=== PATIENT | female | born 1990 | race Caucasian/White ===

== ENCOUNTER 2017-08-14 19:21 | Emergency (ER) | payer BC ==
[~2017-08-14] VITALS: Ht 162.6 cm; Wt 68.0 kg
[~2017-08-14 19:21] MED LIST: DEPO150I IM; PROM25TA10 PO; VALT500T PO; VENL75TA PO; birth control PO
[2017-08-14 19:23] VITALS: BP 138/94; PULSE 89; RESP 16; TEMP 98.5; O2SAT 99
[2017-08-14 19:38] VITALS: BP 147/94; PULSE 83; RESP 18; O2SAT 99
[2017-08-14] MEDS ORDERED: ACETAMINOPHEN 325 MG TAB PO ONE (19:45)
--- NOTE | 2017-08-14 19:45 | PD ---
HPI Chief Complaint: Abnormal Results Time Seen by Provider: 19:32 Travel History International Travel<30 days: No Contact w/Intl Traveler<30days: No Traveled to known affect area: No History of Present Illness HPI Examined in the presence of female nurse. This is 27-year-old female who is transferred here from [facility] for ultrasound of the right lower extremity. The patient reports that she woke up yesterday morning with pain to the posterior proximal right calf and knee. She describes it as a "charley horse" type pain that is constant, worse when walking. She does not recall any injuries but she does note that 2 days ago she had a lot of alcohol to drink and so she may have fallen but doesn't remember specifically. She denies any history of DVT personally. Denies any recent travel. She does report exploratory laparoscopic surgery in June 2017 for endometriosis treatment. She denies chest pain, shortness of breath, thigh pain, back pain. She tried taking ibuprofen with persistent pain. PFSH Past Medical History Depression: Yes Diminished Hearing: No Immunizations Current: Yes Tetanus Vaccination: Unknown Influenza Vaccination: No ?: Not LMP: 07/22/17 Ovarian Cysts: Yes Past Surgical History Abdominal Surgery: Yes (EXP FOR ENDOMETRIOSIS) Other Surgery: Yes ([place] teeth) Social History Alcohol Use: Yes (socially) Tobacco Use: Yes (1/2 ppd) Substance Use: No Allergies-Medications (Allergen,Severity, Reaction): Coded Allergies: No Known Allergies (Unverified Adverse Reaction, Unknown, 08/14/17) Reported Meds & Prescriptions Reported Meds & Active Scripts Active Ibuprofen 800 Mg Tab 800 Mg PO Q6HR PRN Baclofen 10 Mg Tab 10 Mg PO Q8HR 5 Days Reported Depo-Provera Inj (Medroxyprogesterone Inj) 150 Mg/Ml Inj 150 Mg IM Q90D Effexor (Venlafaxine HCl) 75 Mg Tab 75 Mg PO DAILY [ control] 1 Tab 1 Tab PO HS Review of Systems Except as stated in HPI: all other systems reviewed are Neg Physical Exam Narrative GENERAL: Well-developed well-nourished female in no acute distress SKIN: Warm and dry. HEAD: Atraumatic. Normocephalic. EYES: Pupils equal and round. No scleral icterus. No injection or drainage. ENT: No nasal bleeding or discharge. Mucous membranes pink and moist. NECK: Trachea midline. No JVD. CARDIOVASCULAR: Regular rate and rhythm. No murmur appreciated. RESPIRATORY: No accessory muscle use. Clear to auscultation. Breath sounds equal bilaterally. GASTROINTESTINAL: Abdomen soft, non-tender, nondistended. Hepatic and splenic margins not palpable. MUSCULOSKELETAL: No obvious deformities. There is no lower extremity edema. There is tenderness to palpation of the posterior right calf muscle. Positive Homans on the right leg. Achilles tendon is intact. The patient maintains full active range of motion of the lower extremities. 2+ dorsalis pedis and posterior tibial pulses. NEUROLOGICAL: Awake and alert. No obvious cranial nerve deficits. Motor grossly within normal limits. Normal speech. PSYCHIATRIC: Appropriate mood and affect; insight and judgment normal. Data Data Last Documented VS Vital Signs Date Time Temp Pulse Resp B/P (MAP) Pulse Ox O2 Delivery O2 Flow Rate FiO2 08/14/17 19:38 83 18 147/94 (111) 99 Room Air 08/14/17 19:23 98.5 Orders Orders Us Leg Venous Doppler (08/14/17 19:33) Acetaminophen (Tylenol) (08/14/17 19:45) Ketorolac Inj (Toradol Inj) (08/14/17 20:30) Ed Discharge Order (08/14/17 20:23) [facility] Medical Decision Making Medical Screen Exam Complete: Yes Emergency Medical Condition: Yes Medical Record Reviewed: Yes Differential Diagnosis Muscle cramp, muscle strain, DVT Narrative Course 27-year-old female has been expressing right calf pain since yesterday. Transferred here from [facility] for ultrasound of the right leg. I reviewed her records from her visit this afternoon at [facility]. CBC was unremarkable, CMP revealed a total protein of 6.3, calcium 8.1. Beta hCG was negative. Tibia-fibula x-ray was normal. D-dimer was 0.5. I offered the patient muscle relaxant medication however she declines as she will likely have to drive herself home tonight. The patient's right leg ultrasound is negative for DVT. Suspect muscular pain. The patient be given a dose of Toradol here and discharged with a short course of ibuprofen and baclofen. Diagnosis Primary Impression: Right calf pain Additional Instructions: Cool compresses several times a day 10 minutes at a time. Medication as needed. Take ibuprofen with meals. Do not drive or drink alcohol and taking baclofen. Follow up with primary care physician as needed and return for any emergent medical conditions. Med/Other Pt SpecificInfo: Prescription(s) given Scripts Ibuprofen (Ibuprofen) 800 Mg Tab 800 MG PO Q6HR Y for PAIN, #40 TAB 0 Refills Prov: Vicki Funez MD 08/14/17 Baclofen (Baclofen) 10 Mg Tab 10 MG PO Q8HR for 5 Days, TAB 0 Refills Prov: Vicki Funez MD 08/14/17 Disposition: 01 DISCHARGE HOME Condition: Stable Dutch Oneal Aug 14, 2017 19:45
--- NOTE | 2017-08-14 20:22 | RADRPT ---
EXAM DATE/TIME: 08/14/2017 19:58 [place] COMPARISON: No previous studies available for comparison. INDICATIONS : Right leg pain. MEDICAL HISTORY : Endometriosis. Ovarian cysts. Depression. SURGICAL HISTORY : Exploratory surgery for endometriosis. [place] teeth. ENCOUNTER: Initial ACUITY: 2 day PAIN SCORE: 8/10 LOCATION: Right leg. TECHNIQUE: Venous ultrasound of the leg was performed from the inguinal ligament to the proximal calf. Real-karen e, color Doppler and spectral tracing, compression and augmentation techniques were used. FINDINGS: There is normal compressibility of the deep venous system from the inguinal region to the proximal ca lf. No echogenic clot is seen in the lumen of the common femoral, femoral, popliteal, and posterior tibial veins. There is a normal response of the venous system to proximal and distal augmentation an d respiration. CONCLUSION: No evidence of DVT Santosh Bonilla MD on August 14, 2017 at 20:19 Board Certified Radiologist. This report was verified electronically.
[2017-08-14] MEDS ORDERED: BACL10TA PO (20:26)
[2017-08-14] MEDS ORDERED: IBUP1TAB7 PO (20:26)
[2017-08-14] MEDS ORDERED: KETOROLAC TROMETHAMINE 60 MG/2 ML (IM) VIAL IM ONE (20:30)
[2017-08-14 20:31] VITALS: BP 130/87
== END 2017-08-14 20:34 | disposition home or self-care (01) ==
LOC: NEPE 19:21
DX: M79.661 Pain in right lower leg (principal); F32.9 Major depressive disorder, single episode, unspecified; F17.200 Nicotine dependence, unspecified, uncomplicated; Z79.3 Long term (current) use of hormonal contraceptives
CPT/HCPCS: 93971; 96372; 99284; J1885; 73590; 80053; 84702; 85025; 85379